=== PATIENT | male | born 1935 | race Caucasian/White ===

== ENCOUNTER → 2017-11-22 | Outpatient (CLI) | payer MEDICARE, OTHER ==
[~2017-11-22] MED LIST: AMOCLA875; ASPI325 PO; ASPI81CH PO; ATOR20 PO; Aspirin EC325 MG PO; CLIN150 PO; CLOP75 PO; GAVILAX17 GM PO; HYDACE5 PO; ISOMON20 PO; LOSA25 PO; METO25ER; METO25ER PO; NITR.4SL SL; OMEP20ER; PANT40 PO; Prilosec Otc20 MG; Prilosec Otc20 MG PO; RANI150 PO; RXHYDACE PO; SULTRIDS PO; VICODIN 5-3001 EACH PO; ZANTAC PO; [UNRECOGNIZED DRUG - REMARK] PO
== END | disposition home or self-care (01) ==
LOC: PLD 14:05 → LAB SHORT 14:05
DX: D48.5 Neoplasm of uncertain behavior of skin (principal)
CPT/HCPCS: 88305

== ENCOUNTER 2018-01-08 09:46 | Day surgery (SDC) | payer MEDICARE, OTHER ==
[~2018-01-08] VITALS: Ht 167.6 cm; Wt 75.8 kg
[~2018-01-08 09:46] MED LIST changes: -METO25ER
[2018-01-08] MEDS ORDERED: METO25ER (10:36)
== END 2018-01-08 11:40 | disposition home or self-care (01) ==
LOC: ORSCSDS 09:46
PROVIDERS: Internal Medicine Gastroenterology
PROC: 0DB68ZX Excision of Stomach, Via Natural or Artificial Opening Endoscopic, Diagnostic (ICD-10-PCS; principal; 2018-01-08 11:30)
PROC: 0DB98ZX Excision of Duodenum, Via Natural or Artificial Opening Endoscopic, Diagnostic (ICD-10-PCS; principal; 2018-01-08 11:30)
DX: K21.9 Gastro-esophageal reflux disease without esophagitis (principal); K44.9 Diaphragmatic hernia without obstruction or gangrene; I25.10 Atherosclerotic heart disease of native coronary artery without angina pectoris; Z95.1 Presence of aortocoronary bypass graft; E78.5 Hyperlipidemia, unspecified; I10 Essential (primary) hypertension; N40.0 Benign prostatic hyperplasia without lower urinary tract symptoms; Z87.891 Personal history of nicotine dependence; Z79.82 Long term (current) use of aspirin; Z79.899 Other long term (current) drug therapy
CPT/HCPCS: 88305; 88342; J7120

== ENCOUNTER → 2018-06-05 | Outpatient (CLI) | payer MEDICARE, OTHER ==
[~2018-06-05] MED LIST changes: +METO25ER
== END | disposition home or self-care (01) ==
LOC: PLD 11:22 → LAB SHORT 11:22
DX: D48.5 Neoplasm of uncertain behavior of skin (principal)
CPT/HCPCS: 88305

== ENCOUNTER → 2018-12-11 | Outpatient (CLI) | payer MEDICARE, OTHER | END | disposition home or self-care (01) | LOC: PLD 11:34 → LAB SHORT 11:34 | DX: D48.5 Neoplasm of uncertain behavior of skin (principal) | CPT/HCPCS: 88305 ==

== ENCOUNTER → 2019-06-17 | Outpatient (CLI) | payer MEDICARE, OTHER | END | disposition home or self-care (01) | LOC: PLD 11:40 → LAB SHORT 11:40 | DX: D48.5 Neoplasm of uncertain behavior of skin (principal) | CPT/HCPCS: 88305 ==

== ENCOUNTER 2021-03-06 10:08 | Emergency (ER) | payer MEDICARE, OTHER ==
[~2021-03-06] VITALS: Ht 167.6 cm; Wt 72.6 kg
[~2021-03-06 10:08] MED LIST changes: +OMEP20ER PO; -Prilosec Otc20 MG
[2021-03-06] MEDS ORDERED: CLOP75 PO (14:16)
[2021-03-07] MEDS ORDERED: ASPI81CH PO (14:31)
== END 2021-03-06 14:24 | disposition left against medical advice (07) ==
LOC: ER 10:08
DX: I63.9 Cerebral infarction, unspecified (principal); R20.0 Anesthesia of skin; R20.2 Paresthesia of skin; Z88.0 Allergy status to penicillin; Z88.1 Allergy status to other antibiotic agents; Z79.899 Other long term (current) drug therapy; Z87.891 Personal history of nicotine dependence
CPT/HCPCS: 70450; 99284-25

== ENCOUNTER 2021-03-07 09:54 | Observation (INO) | payer MEDICARE, OTHER ==
[~2021-03-07] VITALS: Ht 167.6 cm; Wt 72.6 kg
[2021-03-07 10:53] LABS: BASOPHILS ABSOLUTE AUTO 0.06 K/mm3 (0.00-0.23); BASOPHILS PERCENT AUTO 1 % (0-2); EOSINOPHILS ABSOLUTE AUTO 0.38 K/mm3 (0.00-0.68); EOSINOPHILS PERCENT AUTO 5 % (0-6); Hematocrit 41.1 % (37.0-53.0); Hemoglobin 14.1 g/dL (13.5-17.5); IMMATURE GRAN ABSOLUTE AUTO 0.02 K/mm3 (0.00-0.10); IMMATURE GRAN PERCENT AUTO 0 % (0-1); LYMPHOCYTES ABSOLUTE AUTO 2.22 K/mm3 (0.84-5.20); LYMPHOCYTES PERCENT AUTO 31 % (21-46); MONOCYTES ABSOLUTE AUTO 0.66 K/mm3 (0.16-1.47); MONOCYTES PERCENT AUTO 9 % (4-13); Mean Corpuscular HGB 30.1 pg (26.0-34.0); Mean Corpuscular HGB Conc 34.3 g/dL (31.5-36.5); Mean Corpuscular Volume 88 fL (80-100); Mean Platelet Volume 10.2 fL (9.1-12.4); NEUTROPHILS ABSOLUTE AUTO 3.91 K/mm3 (1.96-9.15); NEUTROPHILS PERCENT AUTO 54 % (41-73); Platelet Count 259 K/mm3 (150-400); RDW Standard Deviation 38.6 fL (35.1-46.3); Red Blood Cell Count 4.69 M/mm3 (4.30-5.90); White Blood Cell Count 7.25 K/mm3 (4.00-11.30)
[2021-03-07 11:17] LABS: Alanine Aminotransfer (ALT/SGP 21 U/L (12-78); Albumin, Blood 3.8 g/dL (3.4-5.0); Albumin/Globulin Ratio 1.2 (0.8-1.8); Alk Phos 59 U/L (50-136); Anion Gap 4 mmol/L (6-16); Aspartate Aminotrans (AST/SGOT 18 U/L (12-37); Bilirubin, Total 0.6 mg/dL (0.1-1.0); Blood Urea Nitrogen 25 mg/dL (8-24); Bun/Creatinine Ratio 23.4 (12.0-20.0); CO2, Blood 26 mmol/L (21-32); Calcium, Blood 8.7 mg/dL (8.5-10.1); Chloride, Blood 109 mmol/L (98-108); Creatinine, Blood 1.07 mg/dL (0.60-1.20); Globulin, Blood 3.3 g/dL (2.2-4.0); Glomerular Filtration Rate >60 (60-); Glucose, Blood 125 mg/dL (70-99); Potassium, Blood 4.1 mmol/L (3.5-5.5); Sodium, Blood 139 mmol/L (136-145); Total Protein, Blood 7.1 g/dL (6.4-8.2)
[2021-03-07] MEDS ORDERED: ASPI81CH PO (14:31)
--- NOTE | 2021-03-07 19:02 | NUR ---
Shift Summary: Pt is alert, oriented, independent in room. Admission complete, pt calm and cooperative. No concerns, no pain.
[2021-03-08 05:22] LABS: BASOPHILS ABSOLUTE AUTO 0.06 K/mm3 (0.00-0.23); BASOPHILS PERCENT AUTO 1 % (0-2); EOSINOPHILS PERCENT AUTO 8 % (0-6); Hematocrit 40.2 % (37.0-53.0); Hemoglobin 13.6 g/dL (13.5-17.5); IMMATURE GRAN ABSOLUTE AUTO 0.03 K/mm3 (0.00-0.10); IMMATURE GRAN PERCENT AUTO 0 % (0-1); LYMPHOCYTES ABSOLUTE AUTO 2.41 K/mm3 (0.84-5.20); LYMPHOCYTES PERCENT AUTO 32 % (21-46); MONOCYTES ABSOLUTE AUTO 0.76 K/mm3 (0.16-1.47); MONOCYTES PERCENT AUTO 10 % (4-13); Mean Corpuscular HGB Conc 33.8 g/dL (31.5-36.5); Mean Corpuscular Volume 89 fL (80-100); Mean Platelet Volume 10.4 fL (9.1-12.4); NEUTROPHILS ABSOLUTE AUTO 3.58 K/mm3 (1.96-9.15); NEUTROPHILS PERCENT AUTO 48 % (41-73); Platelet Count 227 K/mm3 (150-400); RDW Standard Deviation 39.5 fL (35.1-46.3); Red Blood Cell Count 4.53 M/mm3 (4.30-5.90); White Blood Cell Count 7.44 K/mm3 (4.00-11.30)
--- NOTE | 2021-03-08 05:42 | NUR ---
SHIFT SUMMARY A/O, ABLE TO MAKE NEEDS KNOWN. COOPERATIVE WITH CARE. CALLS AND ANSWERS QUESTIONS APPROPRIATELY. NO C/O PAIN/DISCOMFORT. NO REACCURANCE OF FACIAL DROOP/NUMT TO R SIDE. ALL CONSUMER LENDER EQUAL AND STRONG. PUSH/PULL INTACT. SMILE SYMMETRICAL. APPEARED TO REST MUCH OF THE NIGHT. INDEPENDENT IN ROOM. STEADY GAIT NOTED. VSS/AFEBRILE. NO ACUTE CHANGES NOTED OVERNIGHT. BED REMAINED IN LOWEST POSITION. CALL LIGHT AND BELONGINGS WITHIN REACH. CONTINUE WITH CURRENT PLAN OF CARE. REPORT TO ONCOMING RN.
[2021-03-08 05:47] LABS: Anion Gap 5 mmol/L (6-16); Blood Urea Nitrogen 21 mg/dL (8-24); Bun/Creatinine Ratio 19.4 (12.0-20.0); CO2, Blood 27 mmol/L (21-32); Calcium, Blood 8.7 mg/dL (8.5-10.1); Chloride, Blood 108 mmol/L (98-108); Creatinine, Blood 1.08 mg/dL (0.60-1.20); Glomerular Filtration Rate >60 (60-); Glucose, Blood 95 mg/dL (70-99); Potassium, Blood 4.2 mmol/L (3.5-5.5); Sodium, Blood 140 mmol/L (136-145)
--- NOTE | 2021-03-08 08:33 | NUR ---
echocardiogram completed
--- NOTE | 2021-03-08 13:40 | NUR ---
CARE COORDINATION REFERRAL - ADMIT: 03/06/21 DISCHARGE: 03/08/21 DX: CVA CC: KWILCOX KASIE CALL: PT AT HOME (1WK WITH PCP, NEEDS REFERRAL TO NEUROLOGY) RESIDENCE: HOME CAREGIVER: SARITA ALCANTAR, SPOUSE / PARTNER, DX: CAD, HTN, GERD, HYPERLIPIDEMIA, OSTEOARTHRITIS DME: NONE CCM: NONE HOME HEALTH: NONE SUMMARY: 03/08/21- PER DR. HENLEY, PT TO D/C HOME TODAY. MET WITH PT WHO REPORTS THAT HE IS INDEPENDENT AT HOME AND HIS KIDS COME AND CHECK ON HIM AND HIS . HE IS HIS 'S CAREGIVER AND THEY LIVE IN A SINGLE STORY HOME WITH 2 STEPS INTO THE HOME. THEY HAVE WORKING UTILITIES AND AC IN THE HOME. PT'S DAUGHTER IS GOING TO COME AND GET HIM TO TAKE HIM HOME. HIS PHARMACY IS [facility] IN [place]. PT DOES NOT HAVE A POA AND HIS DAUGHTER, ANIVAL NASH IS HIS NEXT OF KIN. HE HAS NO DME NEEDS AT THIS TIME. REVIEWED KASIE AND HE ACKNOWLEDGED UNDERSTANDING. -JUSTINO
--- NOTE | 2021-03-08 14:38 | NUR ---
DISCHARGE NOTE PT IS AOX4. THIS RN REMOVED PT IV PER DOCUMENTATION. THIS RN FAXED PRESCRIPTIONS TO [employer]. PT DRESSED SELF IN HOME CLOTHING. THIS RN REVIEWED DC INSTRUCTIONS WITH PT WHO VERBALIZED UNDERSTANDING. PT GATHERED BELONGINGS. PT DECLINED WHEELCHAIR ON DC. PT WALKED OFF UNIT WITH HEALTHCARE INTERPRETER AND LEFT BUILDING IN PRIVATE VEHICLE WITH BROTHER.
== END 2021-03-08 14:37 | disposition home or self-care (01) ==
LOC: ER 09:54 → MEDS 09:55
PROVIDERS: Emergency Medicine; ADMIT Family Medicine
DX: G45.9 Transient cerebral ischemic attack, unspecified (principal); I65.22 Occlusion and stenosis of left carotid artery; I10 Essential (primary) hypertension; I25.10 Atherosclerotic heart disease of native coronary artery without angina pectoris; K21.9 Gastro-esophageal reflux disease without esophagitis; E78.5 Hyperlipidemia, unspecified; Z87.891 Personal history of nicotine dependence; Z95.1 Presence of aortocoronary bypass graft; Z79.82 Long term (current) use of aspirin; Z79.01 Long term (current) use of anticoagulants; Z86.73 Personal history of transient ischemic attack (TIA), and cerebral infarction without residual deficits
CPT/HCPCS: 36415; 70496; 70498; 70551; 80048; 80053; 85025; 93005; 93010; 93306; 99285-25; A9270; G0378; J7030; Q9967

== ENCOUNTER → 2022-02-03 | Outpatient (CLI) | payer MEDICARE, OTHER | END | disposition home or self-care (01) | LOC: LAB SHORT 10:59 | DX: C44.212 Basal cell carcinoma of skin of right ear and external auricular canal (principal) | CPT/HCPCS: 88305 ==

== ENCOUNTER → 2022-03-10 | Outpatient (CLI) | payer MEDICARE, OTHER | END | disposition home or self-care (01) | LOC: PLD 15:05 → LAB SHORT 15:05 | DX: C44.212 Basal cell carcinoma of skin of right ear and external auricular canal (principal) | CPT/HCPCS: 88305 ==

== ENCOUNTER → 2023-01-26 | Outpatient (CLI) | payer MEDICARE, OTHER | LOC: LAB SHORT 11:24 → PLD 11:24 | DX: D48.5 Neoplasm of uncertain behavior of skin (principal) | CPT/HCPCS: 88305 ==